=== PATIENT | female | born 1980 | race African-American/Black ===

== ENCOUNTER 2019-11-02 10:10 | Inpatient (IN) ==
[2019-11-02] MEDS ORDERED: SODIUM CHLORIDE 0.9% 1,000 ML IV STA (11:23)
[2019-11-02] MEDS ORDERED: guaiFENesin/DM ER 600-30 MG TABLET PO PRN (11:31)
[2019-11-02] MEDS ORDERED: ONDANSETRON 4 MG/2 ML VIAL IV PRN (11:31)
[2019-11-02] MEDS ORDERED: hydrALAZINE 20 MG/1 ML VIAL IV PRN (11:31)
[2019-11-02] MEDS ORDERED: ACETAMINOPHEN 325 MG TABLET PO PRN (11:31)
[2019-11-02 11:40] LABS: PT Patient Result 10.5 SECS (9.8-11.9)
[2019-11-02 11:45] LABS: Alanine Aminotransferase 21 U/L (13-56); Albumin 3.1 G/DL (3.4-5.0); Alkaline Phosphatase 68 U/L (45-117); Aspartate Amino Transferase 27 U/L (0-37); Bilirubin,Total < 0.39 MG/DL (0.2-1.0); Blood Urea Nitrogen 6 MG/DL (7-18); Calcium 8.2 MG/DL (8.5-10.1); Estimated Glom Filtration Rate 174 ML/MIN; Ferritin 42.1 ng/ml (8-252); Glucose 89 MG/DL (74-106); Osmolality,Calculated 266.1 MOS/KG (273-304); Total Protein 7.8 G/DL (6.4-8.3)
[2019-11-02 11:46] LABS: Basophils % 0.4 % (0.0-0.8); Eosinophils % 0.2 % (0.00-10.9); Hematocrit 33.8 VOL% (35.7-47.0); Immature Granulocytes % 0.2 %; Immature Granulocytes Absolute 0.01 #; Lymphocytes # 1.3 10*3/uL (1.4-4.0); Lymphocytes % 25.1 % (21.3-54.2); Mean Corpuscular HGB Conc 27.5 GM/DL (32-36); Mean Corpuscular Volume 65.1 FL (87-102); Mean Platelet Volume 9.3 FL (9.6-12.0); Monocytes % 6.7 % (1.7-12.7); Neutrophils % 67.4 % (38.7-73.9); Platelet Count 426 T/CUMM (130-400); Red Blood Count 5.19 MC/CUMM (3.8-5.5); Red Cell Distribution Width 22.5 % (9.3-17.3); White Blood Count 5.1 T/CUMM (4-12)
[2019-11-02 11:47] LABS: Hemoglobin 9.3 GM/DL (12.0-16.0)
[2019-11-02 12:03] LABS: Anisocytosis 1+; Platelet Estimate Normal; Poikilocytosis 1+
[2019-11-02 12:04] LABS: Basophilic Stippling Few; Hypochromasia 2+; Tear Drop Cells Few
[2019-11-02] MEDS: cefTRIAXone 1,000 MG in SYRINGE 1 EACH IV SCH (13:25)
[2019-11-02] MEDS: ENOXAPARIN 40 MG/0.4 ML SYRINGE SUBCUT SCH (13:35)
[2019-11-02 23:44] LABS: Apearance,Urine CLEAR (Clear); Bilirubin,Urine Negative (Negative); Blood, Urine Negative (Negative); Glucose,Urine (UA) Negative (Negative); Ketones,Urine Negative (Negative); Mucus,Urine Occasional /LPF (Occasional); Nitrite,Urine Negative (Negative); Protein,Urine Negative; RBC,Urine 1 /HPF (0-4); Squamous Epithelial Cell,Urine Occasional /HPF (0-10); Urine Color Yellow (Yellow); Urine Specific Gravity 1.016 (1.001-1.035); Urine Urobilinogen < 2.0 EU/DL (0.2-1.0); WBC,Urine <1 /HPF (0-6)
[2019-11-03] MEDS: ALBUTEROL INHALER 8 GM INH SCH ×4 (01:19→21:09)
[2019-11-03 06:56] LABS: Basophils % 0.2 % (0.0-0.8); Eosinophils # 0.1 10*3/uL (0.0-0.87); Eosinophils % 1.2 % (0.00-10.9); Hematocrit 30.1 VOL% (35.7-47.0); Hemoglobin 9.7 GM/DL (12.0-16.0); Immature Granulocytes % 1.1 %; Immature Granulocytes Absolute 0.11 #; Lymphocytes # 0.4 10*3/uL (1.4-4.0); Lymphocytes % 3.5 % (21.3-54.2); Mean Corpuscular HGB Conc 32.2 GM/DL (32-36); Mean Corpuscular Volume 99.7 FL (87-102); Mean Platelet Volume 10.9 FL (9.6-12.0); Monocytes % 3.6 % (1.7-12.7); NRBC # 0.02 10*3/uL; Neutrophils % 90.4 % (38.7-73.9); Red Blood Count 3.02 MC/CUMM (3.8-5.5); Red Cell Distribution Width 18.3 % (9.3-17.3); White Blood Count 10.1 T/CUMM (4-12)
[2019-11-03 07:03] LABS: Platelet Count 96 T/CUMM (130-400)
[2019-11-03 07:08] LABS: Osmolality,Calculated 273.7 MOS/KG (273-304); Risk Ratio 1.93; VLDL CHOLESTEROL 11.8 MG/DL
[2019-11-03 07:29] LABS: Band Neutrophils 5 % (0-10); Eosinophils 2 % (0-10); Hypochromasia 1+; Lymphocytes 2 % (20-55); Platelet Estimate Decreased; Segmented Neutrophils 89 % (50-85); Target Cells Few; Total Cells Counted 100
[2019-11-03] MEDS ORDERED: AZITHROMYCIN 250 MG TABLET PO SCH (09:00)
[2019-11-03] MEDS: cefTRIAXone 1,000 MG in SYRINGE 1 EACH IV SCH (09:59)
[2019-11-03] MEDS: ENOXAPARIN 40 MG/0.4 ML SYRINGE SUBCUT SCH (09:59)
[2019-11-03 12:03] LABS: Calcium 8.5 MG/DL (8.5-10.1)
[2019-11-04] MEDS: ALBUTEROL INHALER 8 GM INH SCH ×3 (01:43→13:11)
[2019-11-04] MEDS: ENOXAPARIN 40 MG/0.4 ML SYRINGE SUBCUT SCH (09:03)
[2019-11-04] MEDS: cefTRIAXone 1,000 MG in SYRINGE 1 EACH IV SCH (09:03)
[2019-11-04 10:34] LABS: Calcium 8.2 MG/DL (8.5-10.1); Osmolality,Calculated 273.5 MOS/KG (273-304)
[2019-11-04 13:14] LABS: Basophils % 0.5 % (0.0-0.8); Eosinophils % 0.7 % (0.00-10.9); Hemoglobin 9.5 GM/DL (12.0-16.0); Immature Granulocytes % 0.5 %; Immature Granulocytes Absolute 0.02 #; Lymphocytes # 1.8 10*3/uL (1.4-4.0); Lymphocytes % 40.3 % (21.3-54.2); Mean Corpuscular HGB Conc 27.1 GM/DL (32-36); Mean Corpuscular Volume 65.3 FL (87-102); Mean Platelet Volume 8.9 FL (9.6-12.0); Monocytes % 7.4 % (1.7-12.7); Neutrophils % 50.6 % (38.7-73.9); Platelet Count 458 T/CUMM (130-400); Red Blood Count 5.36 MC/CUMM (3.8-5.5); Red Cell Distribution Width 22.5 % (9.3-17.3); White Blood Count 4.4 T/CUMM (4-12)
[2019-11-04 13:58] LABS: Hypochromasia 1+
[2019-11-04 13:59] LABS: Microcytosis 3+; Platelet Estimate Increased; Target Cells Few
[2019-11-04 14:03] VITALS: BP 139/77
[2019-11-04] MEDS ORDERED: POTASSIUM CHLORIDE 20 MEQ TABLET PO ONE (15:00)
== END 2019-11-04 15:16 | disposition home or self-care (01) | DRG 137 ==
LOC: N.ED 10:10 → N.EDINP 11:31 → N.2W 12:25
PROVIDERS: ADMIT Internal Medicine; ATTEND Internal Medicine